=== PATIENT | male | born 1985 | race African-American/Black ===

== ENCOUNTER 2023-06-06 12:17 | Emergency (ER) | payer MEDICAID ==
[~2023-06-06] VITALS: Ht 180.3 cm; Wt 86.0 kg
[~2023-06-06 12:17] MED LIST: AZIT250T12 MT; CLAR10 MT; IBUP-1523 MT; P50 MT; TOPUD MT
[2023-06-06 12:24] VITALS: TEMP 98.4; O2SAT 98
[2023-06-06] MEDS ORDERED: KETOROLAC 30MG/ML VIAL IM ONE (14:15)
[2023-06-06] MEDS ORDERED: NAPR-1176 MT (14:26)
[2023-06-06 14:53] VITALS: BP 136/99; PULSE 99; RESP 18
== END 2023-06-06 16:44 | disposition home or self-care (01) ==
LOC: ER 12:17
DX: S82.891A Other fracture of right lower leg, initial encounter for closed fracture (principal); V49.49XA Driver injured in collision with other motor vehicles in traffic accident, initial encounter; Y93.89 Activity, other specified; Y92.89 Other specified places as the place of occurrence of the external cause; Y99.8 Other external cause status; Z98.890 Other specified postprocedural states
CPT/HCPCS: 73610; 73630; 29515; 96372; 99284; J1885; Z7610